=== PATIENT | female | born 1995 | race Caucasian/White ===

== ENCOUNTER → 2017-04-20 | Outpatient (CLI) | payer BC, OTHER | LOC: COL.RAD 09:58 | DX: M25.521 Pain in right elbow (principal) | CPT/HCPCS: A9585; Q9967 ==

== ENCOUNTER → 2017-10-22 | Outpatient (CLI) | payer BC | LOC: COL.RAD 07:18 | DX: G54.0 Brachial plexus disorders (principal) | CPT/HCPCS: Q9967 ==